=== PATIENT | female | born 1990 | race Caucasian/White ===

== ENCOUNTER 2018-06-21 18:00 | Inpatient (IN) | payer OTHER ==
[~2018-06-21] VITALS: Ht 160 cm; Wt 59.9 kg
[2018-06-21 18:35] VITALS: BP 116/72
[2018-06-21] MEDS ORDERED: D5 LR IV SOLUTION 1,000 ML IV ONE (18:39)
[2018-06-21] MEDS: D5 LR IV SOLUTION 1,000 ML IV SCH ×2 (18:50→22:29)
[2018-06-21 19:24] VITALS: BP 107/72
[2018-06-21 19:25] LABS: BASOPHILS % (AUTO) 0 % (0-10); EOSINOPHILS # (AUTO) 0.1 10^3/uL (0.0-0.3); EOSINOPHILS % (AUTO) 1 % (0-10); HEMATOCRIT 36 % (35-52); HEMOGLOBIN 12.5 G/DL (11.5-16.0); LYMPHOCYTES # (AUTO) 1.4 X 10^3 (1.0-4.0); LYMPHOCYTES % (AUTO) 19 % (12-44); MEAN CORPUSCULAR HGB CONC 35 G/DL (32-36); MEAN CORPUSCULAR VOLUME 93 FL (80-99); MEAN PLATELET VOLUME 9.7 FL (7.4-10.4); MONOCYTES # (AUTO) 0.6 X 10^3 (0.0-1.0); MONOCYTES % (AUTO) 9 % (0-12); NEUTROPHILS # (AUTO) 5.2 X 10^3 (1.8-7.8); NEUTROPHILS % (AUTO) 71 % (42-75); PLATELET COUNT 228 10^3/uL (130-400); RED BLOOD COUNT 3.85 10^6/uL (4.35-5.85); RED CELL DISTRIBUTION WIDTH 13.5 % (10.0-14.5); WHITE BLOOD COUNT 7.3 10^3/uL (4.3-11.0)
[2018-06-21] MEDS ORDERED: DINOPROSTONE 10 MG (CERVIDIL) INSERT ONE (19:25)
[2018-06-21 19:26] LABS: MEAN CORPUSCULAR HEMOGLOBIN 32 PG (25-34)
[2018-06-21] MEDS ORDERED: DINOPROSTONE 10 MG (CERVIDIL) INSERT PV ONE (19:30)
[2018-06-21] MEDS ORDERED: ASPI-999 PO (19:39)
[2018-06-21] MEDS ORDERED: PREN1TAB19 PO (19:39)
--- NOTE | 2018-06-21 20:29 | History & Physical ---
History and Physical Date Seen by Provider: Jun 21, 2018 Time Seen by Provider: 20:25 This patient is a 27-year-old 1 white female with an EDC of [id number] [phone]. She presents now at 38 weeks gestation for cervical ripening in preparation for labor induction secondary to gestational diabetes and to mild PIH. She is a type AI gestational diabetic with good control on her diet. She denies rupture membranes or bleeding. She does feel baby moving. She's had no other problems with this . Her GBS culture done after 35 weeks gestation was negative. Allergies are none Medications are vitamins and low-dose aspirin Medical social and surgical histories are per the antepartum record HEENT exam is normal Neck is supple no lymphadenopathy no thyromegaly Abdomen is gravid soft nontender nondistended Extreme show clubbing cyanosis. There is no Homans sign. Pelvic exam is deferred monitor shows a normal heart rate pattern with regular accels is no D cells and good variability. There are occasional contractions now that began after the Cervidil was placed Laboratory Tests 06/21/18 18:50 Assessment and plan 38 week intrauterine complicated by gestational diabetes. Patient is admitted now for Cervidil cervical ripening with plan for dose induction of labor in the morning. Anticipation is for vaginal delivery patient is aware that there are and maternal risks for delivery 38 week with gestational diabetes mellitus Allergies and Home Medications Allergies Coded Allergies: No Known Drug Allergies (Unverified , 06/21/18) Home Medications Aspirin 81 Mg Tab.chew, 81 MG PO DAILY, (Reported) Vit/Iron Fumarate/FA 1 Each Tablet, 1 EACH PO DAILY, (Reported) Patient Home Medication List Home Medication List Reviewed: Yes Clinical Quality Measures DVT/VTE Risk/Contraindication: Risk Factor Score Per Nursin RFS Level Per Nursing on Admit: 1=Low/No VTE PPX RL VARGAS MD Jun 21, 2018 20:28
[2018-06-21 20:31] VITALS: BP 110/71
[2018-06-21 23:45] VITALS: BP 109/76
[2018-06-22] VITALS (73 sets, daily range): BP systolic 94–137; BP diastolic 52–91
[2018-06-22] MEDS: D5 LR IV SOLUTION 1,000 ML IV SCH ×3 (05:02→18:15)
[2018-06-22] MEDS: CATHETER FLUSH 10 ML SYR IV SCH ×4 (05:54→22:00)
[2018-06-22] MEDS: OXYTOCIN/NORMAL SALINE 500 ML IV SCH (06:05)
[2018-06-22] MEDS ORDERED: LACTATED RINGERS 1,000 ML IV ONE (07:30)
[2018-06-22] MEDS ORDERED: SUFENTA 0.6MCG/ML BUPIVA 0.125 100 ML ONE (07:30)
--- NOTE | 2018-06-22 07:55 | Progress Note-Standard ---
Standard Progress Note Progress Notes/Assess & Plan Date Seen by a Provider: Jun 22, 2018 Time Seen by a Provider: 07:52 Progress/Assessment & Plan Patient is without complaint except for intensify and contractions. She denies rupture membranes or bleeding. She denies nausea vomiting Vital Signs Date Time Temp Pulse Resp B/P (MAP) Pulse Ox O2 Delivery O2 Flow Rate FiO2 06/22/18 07:00 66 18 100/63 (75) Room Air 06/22/18 06:45 77 18 108/71 (83) Room Air 06/22/18 06:30 73 18 106/74 (85) Room Air 06/22/18 06:19 96.3 74 18 113/73 (86) Room Air 06/22/18 05:04 96.8 76 18 112/66 (81) Room Air 06/21/18 23:45 97.2 74 18 109/76 (87) Room Air 06/21/18 20:31 85 18 110/71 (84) Room Air 06/21/18 19:24 97.0 83 18 107/72 (84) Room Air 06/21/18 18:35 96.9 83 18 116/72 (87) Room Air I & O 06/22/18 07:00 Intake Total 2300 ml Balance 2300 ml Vital signs are stable. Patient is afebrile. History of blood sugars have been checked and have been less than 120 The abdomen is gravid soft nontender non-distended. Extreme show clubbing cyanosis. There is no Homans sign. Pelvic exam shows a cervix is almost 2 cm dilated 80 percent effaced and 0 to - 1 station soft anterior with a vertex presentation and with intact membranes. Amniotomy is performed with release of clear fluid. monitor shows contractions now every 2-3 minutes. Patient has been started on Pitocin this morning. heart rate pattern is reassuring reactive normal Assessment and plan hospital day 2 undergone Pitocin induction of labor now at 38 weeks gestation secondary to gestational diabetes. Patient had mild PIH in clinic her blood pressures have been normal since admission. Epidural is pending RL VARGAS MD Jun 22, 2018 07:55
[2018-06-22] MEDS: EPIDURAL (SUFENTA 0.6MCG/ML BUPIVA 0.125%) 100 ML BAG EPI SCH ×2 (08:36→15:08)
[2018-06-22] MEDS ORDERED: LACTATED RINGERS 1,000 ML IV SCH (09:00)
[2018-06-22] MEDS ORDERED: NALOXONE 0.4 MG/ML 1 ML (NARCAN) VIAL IV PRN ×2 (09:00)
[2018-06-22] MEDS ORDERED: ONDANSETRON 4 MG/2 ML (SDV) Z0FRAN IV PRN (09:00)
[2018-06-22] MEDS ORDERED: diphenhydrAMINE 50 MG/ML INJ (BENADRYL) IV PRN (09:00)
[2018-06-22] MEDS ORDERED: METOCLOPRAMIDE INJ 10 MG/2 ML (REGLAN) IV PRN (09:00)
[2018-06-22] MEDS ORDERED: MINERAL OIL CONCENTRATE 99.9% 15 ML UDC ONE (17:18)
[2018-06-22] MEDS ORDERED: LIDOCAINE/EPI 2% 1:200,00 (XYLOCAINE) 10 ML VIAL ONE (17:18)
[2018-06-22] MEDS ORDERED: OXYTOCIN/NORMAL SALINE 500 ML IV SCH (20:59)
[2018-06-22] MEDS ORDERED: TETANUS,DIPTH,PERTUSS P/F (BOOSTRIX) 0.5 ML VIAL IM ONE (21:00)
[2018-06-22] MEDS ORDERED: oxyCODONE/APAP 5/325MG (PERCOCET 5) TABLET PO PRN (21:00)
[2018-06-22] MEDS ORDERED: ONDANSETRON 4 MG/2 ML (SDV) Z0FRAN IVP PRN (21:00)
[2018-06-22] MEDS ORDERED: BENZOCAINE/MENTHOL (DERMOPLAST) 56 ML CAN TP PRN (21:00)
[2018-06-22] MEDS ORDERED: MEASLES,MUMPS,RUBELLA 1 EA INJ SC ONE (21:00)
[2018-06-23 00:10] VITALS: BP 118/73
[2018-06-23] MEDS ORDERED: WITCH HAZEL(TUCKS) 40 EA JAR TOP PRN (00:15)
[2018-06-23] MEDS ORDERED: DIBUCAINE (NUPERCAINAL) 1% OINT 30 GM TOP PRN (00:15)
--- NOTE | 2018-06-23 00:43 | OPERATIVE REPORT ---
DATE OF SERVICE: 06/22/2018 DELIVERY NOTE The patient delivered by term spontaneous vaginal delivery a viable male with Apgars of 8 and 9 at 1 and 5 minutes respectively, weight of 7 pounds 2 ounces, time of 18:54 and a cord blood gas pH of 7.26. The infant was delivered over midline episiotomy was performed as the baby was and the perineum was beginning to tear and shred. The delivery was accomplished promptly after the episiotomy was performed. The infant was bulb suctioned on delivery of the head and again on completion of delivery. Infant had spontaneous cry, was quickly pink, moved all extremities, had excellent tone and reflexes and heart rate over 120. The baby was placed on mom's abdomen and umbilical cord was doubly clamped, father cut the cord. Cord bloods were obtained. The placenta delivered fairly promptly spontaneously Santa. It was normal with a 3-vessel cord. The placenta was sent to pathology for permanent section secondary to the patient's gestational diabetes. The cervix, vagina, rectum and perineum were examined and found intact, except for the midline episiotomy and a small periurethral abrasion that was hemostatic and did not require repair. The episiotomy was repaired with a single suture of 3-0 Vicryl in the usual manner without difficulty to good reapproximation, good hemostasis. The patient tolerated the delivery and the repair well and remained in the LDR for recovery. The baby remained with the mom. Job ID: [id number] DocumentID: [id number] Dictated Date: 06/22/2018 19:20:54 Nuclear Technologist Date: 06/23/2018 00:42:03 Dictated By: RL VARGAS MD MTDD
[2018-06-23] MEDS: KETOROLAC 30 MG/ML VIAL IV SCH ×2 (01:10→04:04)
[2018-06-23] MEDS: DOCUSATE SODIUM 100 MG (COLACE) CAP PO SCH ×2 (01:10→22:19)
[2018-06-23] MEDS: OXYTOCIN/NORMAL SALINE 500 ML IV SCH (01:11)
[2018-06-23 05:00] VITALS: BP 89/58
[2018-06-23] MEDS: CATHETER FLUSH 10 ML SYR IV SCH (06:30)
--- NOTE | 2018-06-23 07:40 | Progress Note-Standard ---
Standard Progress Note Progress Notes/Assess & Plan Date Seen by a Provider: Jun 23, 2018 Time Seen by a Provider: 07:39 Progress/Assessment & Plan Patient is without complaint except for intensify and contractions. She denies rupture membranes or bleeding. She denies nausea vomiting Vital Signs Date Time Temp Pulse Resp B/P (MAP) Pulse Ox O2 Delivery O2 Flow Rate FiO2 06/22/18 07:00 66 18 100/63 (75) Room Air 06/22/18 06:45 77 18 108/71 (83) Room Air 06/22/18 06:30 73 18 106/74 (85) Room Air 06/22/18 06:19 96.3 74 18 113/73 (86) Room Air 06/22/18 05:04 96.8 76 18 112/66 (81) Room Air 06/21/18 23:45 97.2 74 18 109/76 (87) Room Air 06/21/18 20:31 85 18 110/71 (84) Room Air 06/21/18 19:24 97.0 83 18 107/72 (84) Room Air 06/21/18 18:35 96.9 83 18 116/72 (87) Room Air I & O 06/22/18 07:00 Intake Total 2300 ml Balance 2300 ml Vital signs are stable. Patient is afebrile. History of blood sugars have been checked and have been less than 120 The abdomen is gravid soft nontender non-distended. Extreme show clubbing cyanosis. There is no Homans sign. Pelvic exam shows a cervix is almost 2 cm dilated 80 percent effaced and 0 to - 1 station soft anterior with a vertex presentation and with intact membranes. Amniotomy is performed with release of clear fluid. monitor shows contractions now every 2-3 minutes. Patient has been started on Pitocin this morning. heart rate pattern is reassuring reactive normal Assessment and plan hospital day 2 undergone Pitocin induction of labor now at 38 weeks gestation secondary to gestational diabetes. Patient had mild PIH in clinic her blood pressures have been normal since admission. Epidural is pending June 23, 2015 Patient is without complaint. She is ambulating, voiding, tolerating oral intake well has good pain control. Patient denies chest pain, denies shortness breath, denies nausea vomiting Vital Signs 06/23/18 05:00 Temp 96.3 Pulse 77 Resp 18 B/P (MAP) 89/58 (68) Pulse Ox 98 O2 Delivery Room Air Vital signs are stable. Patient is afebrile. Abdomen is benign. Extremities show no clubbing cyanosis. There is no Homans sign. Assessment and plan day number 1 status post term spontaneous vaginal delivery at 38-2/7 weeks' gestation. Patient is doing well will have routine convalescence care today with discharge home tomorrow RL VARGAS MD Jun 23, 2018 07:40
[2018-06-23] MEDS ORDERED: IBUP-1780 PO (07:42)
[2018-06-23] MEDS ORDERED: OXYC1TAB87 PO (07:42)
[2018-06-23] MEDS ORDERED: DOCU100C37 PO (07:42)
--- NOTE | 2018-06-23 07:43 | Discharge Instructions ---
Discharge Instructions Discharge Medications New, Converted or Re-Newed RX: RX on Chart Patient Instructions Patient Instructions: As directed Return to The Hospital For: As directed Activity & Diet Discharge Diet: No Restrictions Activity as Tolerated: No Orders-Post D/C & Referrals Follow Up Appt: Call to make follow up appt. for patient in 4 weeks. Activity Per routine post vaginal delivery instructions. Diet as tolerated Patient may shower or tub bathe as desired. RL VARGAS MD Jun 23, 2018 07:43
[2018-06-23] MEDS ORDERED: MEASLES,MUMPS,RUBELLA 1 EA INJ ONE (07:48)
[2018-06-23 08:00] VITALS: BP 103/71
[2018-06-23 12:00] VITALS: BP 105/68
--- NOTE | 2018-06-23 12:01 | Anesthesia-Regional Post-Op ---
Regional Patient Condition Mental Status: Alert, Oriented x3 Circulation: Same as Pre-Op Headache: Absent Sensation: Full Recovery Motor Block: Absent Post Op Complications Complications None Follow Up Care/Instructions Patient Instructions None needed. Anesthesia/Patient Condition Patient is doing well, no complaints, stable vital signs, no apparent adverse anesthesia problems. No complications reported per nursing. EVIE ENAMORADO CRNA Jun 23, 2018 12:01
[2018-06-23 17:00] VITALS: BP 98/60
[2018-06-23 21:10] VITALS: BP 118/76
[2018-06-23] MEDS: IBUPROFEN 800 MG (MOTRIN) TAB PO SCH (22:19)
[2018-06-24] MEDS: IBUPROFEN 800 MG (MOTRIN) TAB PO SCH ×2 (04:45→10:09)
[2018-06-24 05:11] VITALS: BP 106/64
--- NOTE | 2018-06-24 08:14 | Progress Note-Standard ---
Standard Progress Note Progress Notes/Assess & Plan Date Seen by a Provider: Jun 24, 2018 Time Seen by a Provider: 08:13 Progress/Assessment & Plan Patient is without complaint except for intensify and contractions. She denies rupture membranes or bleeding. She denies nausea vomiting Vital Signs Date Time Temp Pulse Resp B/P (MAP) Pulse Ox O2 Delivery O2 Flow Rate FiO2 06/22/18 07:00 66 18 100/63 (75) Room Air 06/22/18 06:45 77 18 108/71 (83) Room Air 06/22/18 06:30 73 18 106/74 (85) Room Air 06/22/18 06:19 96.3 74 18 113/73 (86) Room Air 06/22/18 05:04 96.8 76 18 112/66 (81) Room Air 06/21/18 23:45 97.2 74 18 109/76 (87) Room Air 06/21/18 20:31 85 18 110/71 (84) Room Air 06/21/18 19:24 97.0 83 18 107/72 (84) Room Air 06/21/18 18:35 96.9 83 18 116/72 (87) Room Air I & O 06/22/18 07:00 Intake Total 2300 ml Balance 2300 ml Vital signs are stable. Patient is afebrile. History of blood sugars have been checked and have been less than 120 The abdomen is gravid soft nontender non-distended. Extreme show clubbing cyanosis. There is no Homans sign. Pelvic exam shows a cervix is almost 2 cm dilated 80 percent effaced and 0 to - 1 station soft anterior with a vertex presentation and with intact membranes. Amniotomy is performed with release of clear fluid. monitor shows contractions now every 2-3 minutes. Patient has been started on Pitocin this morning. heart rate pattern is reassuring reactive normal Assessment and plan hospital day 2 undergone Pitocin induction of labor now at 38 weeks gestation secondary to gestational diabetes. Patient had mild PIH in clinic her blood pressures have been normal since admission. Epidural is pending June 23, 2015 Patient is without complaint. She is ambulating, voiding, tolerating oral intake well has good pain control. Patient denies chest pain, denies shortness breath, denies nausea vomiting Vital Signs 06/23/18 05:00 Temp 96.3 Pulse 77 Resp 18 B/P (MAP) 89/58 (68) Pulse Ox 98 O2 Delivery Room Air Vital signs are stable. Patient is afebrile. Abdomen is benign. Extremities show no clubbing cyanosis. There is no Homans sign. Assessment and plan day number 1 status post term spontaneous vaginal delivery at 38-2/7 weeks' gestation. Patient is doing well will have routine convalescence care today with discharge home tomorrow June 24, 2018. Patient is without complaint. She is ablating, voiding, tolerating oral intake well, patient feels ready for discharge home. Vital Signs 06/24/18 05:11 Temp 97.0 Pulse 76 Resp 18 B/P (MAP) 106/64 (78) Pulse Ox 99 O2 Delivery Room Air Vital signs are stable. Patient is afebrile. Fundus is firm below the umbilicus and nontender. Extreme show clubbing cyanosis. Homans sign. Assessment and plan day number 2 status post term spontaneous vaginal delivery at 38 weeks gestation, plan is for discharge home Final Diagnosis 38 week spontaneous vaginal delivery RL VARGAS MD Jun 24, 2018 08:14
--- NOTE | 2018-06-24 08:18 | Discharge Summary ---
Discharge Summary 38 week spontaneous vaginal delivery This patient is a 27-year-old 1 white female admitted at 38+ weeks gestation for labor induction secondary to type AI gestational diabetes. She was admitted in the evening of June 21, 2018 for Cervidil cervical ripening. Pitocin induction of labor was initiated in the a.m. of June 22, 2018. Patient labored adequately and that will have to term spontaneous vaginal delivery. That delivery was uncomplicated patient recovered uneventfully. On June 23, 2018 which was day number 1 patient is ablating, voiding, tolerating oral intake well and had routine convalescence care. Now on June 24, 2018 patient is day number 2 doing well is ambulating, voiding, tolerating oral intake well and requesting discharge home. Principal diagnoses this hospitalization is 38 week spontaneous vaginal delivery Secondary diagnoses are gestational diabetes 38 week Operation procedures include Cervidil cervical ripening, Pitocin induction of labor, amniotomy, epidural labor analgesia, currently spontaneous vaginal delivery Patient was given appropriate discharge instructions verbally and writing and a copy those are placed in the chart. Discharge medications are Percocet and Motrin and Colace. Patient is continue her vitamins. Clinical Quality Measures DVT/VTE Risk/Contraindication: Risk Factor Score Per Nursin RFS Level Per Nursing on Admit: 1=Low/No VTE PPX RL VARGAS MD Jun 24, 2018 08:18
[2018-06-24 08:25] VITALS: BP 129/85
[2018-06-24] MEDS: DOCUSATE SODIUM 100 MG (COLACE) CAP PO SCH (10:09)
== END 2018-06-24 13:45 | disposition home or self-care (01) | DRG 807 ==
LOC: LDRP 18:13
PROVIDERS: ADMIT Obstetrics & Gynecology; ATTEND Obstetrics & Gynecology
PROC: 3E033VJ Introduction of Other Hormone into Peripheral Vein, Percutaneous Approach (ICD-10-PCS; 2018-06-21)
PROC: 10E0XZZ Delivery of Products of Conception, External Approach (ICD-10-PCS; principal; 2018-06-22)
PROC: 0W8NXZZ Division of Female Perineum, External Approach (ICD-10-PCS; principal; 2018-06-22)
DX: O24.420 Gestational diabetes mellitus in childbirth, diet controlled (principal); Z37.0 Single live birth; Z3A.38 38 weeks gestation of pregnancy
CPT/HCPCS: 36415; 82947; 85025; 86850; 86900; 86901; 88307; 90707

== ENCOUNTER 2020-01-07 05:32 | Outpatient (RCR) | payer OTHER ==
[~2020-01-07] VITALS: Ht 160 cm; Wt 55.5 kg
[~2020-01-07 05:32] MED LIST: ASPI-999 PO; DOCU100C37 PO; IBUP-1780 PO; OXYC1TAB87 PO; PREN1TAB19 PO; bcp PO
== END 2020-01-07 09:49 | disposition home or self-care (01) ==
LOC: PREOP 05:32
PROVIDERS: ATTEND Obstetrics & Gynecology
DX: Z01.812 Encounter for preprocedural laboratory examination (principal); L02.818 Cutaneous abscess of other sites; D64.9 Anemia, unspecified; Z20.828 Contact with and (suspected) exposure to other viral communicable diseases
CPT/HCPCS: 87635

== ENCOUNTER 2020-01-09 10:46 | Day surgery (SDC) | payer OTHER ==
[2020-01-09] VITALS (10 sets, daily range): BP systolic 82–135; BP diastolic 53–88
[~2020-01-09] VITALS: Ht 160 cm; Wt 52.7 kg
[2020-01-09] MEDS ORDERED: ceFAZolin INJECTION 1,000 MG in WATER (STERILE) FOR INJECTION 10 ML IV ONE (11:00)
[2020-01-09] MEDS: LACTATED RINGERS 1,000 ML IV PRN ×2 (11:02→13:10)
[2020-01-09 11:27] LABS: BASOPHILS % (AUTO) 0 % (0-10); EOSINOPHILS # (AUTO) 0.1 10^3/uL (0.0-0.3); EOSINOPHILS % (AUTO) 2 % (0-10); HEMATOCRIT 42 % (35-52); HEMOGLOBIN 14.2 G/DL (11.5-16.0); LYMPHOCYTES # (AUTO) 1.8 X 10^3 (1.0-4.0); LYMPHOCYTES % (AUTO) 32 % (12-44); MEAN CORPUSCULAR HEMOGLOBIN 30 PG (25-34); MEAN CORPUSCULAR HGB CONC 34 G/DL (32-36); MEAN CORPUSCULAR VOLUME 88 FL (80-99); MEAN PLATELET VOLUME 9.2 FL (7.4-10.4); MONOCYTES # (AUTO) 0.5 X 10^3 (0.0-1.0); MONOCYTES % (AUTO) 9 % (0-12); NEUTROPHILS # (AUTO) 3.2 X 10^3 (1.8-7.8); NEUTROPHILS % (AUTO) 57 % (42-75); PLATELET COUNT 247 10^3/uL (130-400); RED CELL DISTRIBUTION WIDTH 13.4 % (10.0-14.5); WHITE BLOOD COUNT 5.7 10^3/uL (4.3-11.0)
[2020-01-09] MEDS ORDERED: LIDOCAINE PF 2% 5 ML (XYLOCAINE) VIAL ONE (11:36)
[2020-01-09] MEDS ORDERED: proPOfol 200 MG/20 ML (DIPRIVAN) VIAL IV ONE ×2 (11:36→12:56)
[2020-01-09] MEDS ORDERED: ONDANSETRON 4 MG/2 ML (SDV) Z0FRAN ONE (11:36)
[2020-01-09] MEDS ORDERED: MIDAZOLAM 2 MG/2 ML (VERSED) VIAL ONE (11:36)
[2020-01-09] MEDS ORDERED: SEVOFLURANE (ULTANE) 15 ML INHAL SOLN ONE (11:36)
[2020-01-09] MEDS ORDERED: fentaNYL INJECTION 100 MCG/2 ML AMP ONE ×2 (11:36→13:17)
[2020-01-09] MEDS ORDERED: DEXAMETHASONE 10 MG/ML (DECADRON) 1 ML VIAL ONE (11:36)
--- OUTSIDE RECORDS SUMMARY | 2020-01-09 12:14 | XMS REPORT | Continuity of Care Document ---
Author Organization Unknown Address Unknown Phone Unavailable Allergies Active Description Code Type Severity Reaction Onset Reported/Identified Relationship to Patient Clinical Status Yes No Known Drug Allergies [id number] Drug Allergy Unknown N/A 06/21/2018 Medications There is no data. Problems Date Dx Coded Attending Type Code Diagnosis Diagnosed By 06/24/2018 RL VARGAS MD, Ot O24.420 GESTATIONAL DIABETES MELLITUS IN CHILDBI 06/24/2018 RL VARGAS MD, Ot Z37.0 SINGLE LIVE 06/24/2018 RL VARGAS MD, Ot Z3A.38 38 WEEKS GESTATION OF Procedures Code Description Performed By Per formed On [id number] IN TRODUCTION OF OTH HORMONE INTO PERIPH 06/21/2018 [id number] DI VISION OF FEMALE PERINEUM, EXTERNAL AP 06/22/2018 09Y2NCI DE LIVERY OF PRODUCTS OF CONCEPTION, EXTE 06/22/2018 Results Test Result Range Complete blood count (CBC) with automate d white blood cell (WBC) differential - 06/21/18 18:50 Blood leukocytes automated count (number/volume) 7.3 10*3/uL 4.3-11.0 Blood erythrocytes automated count (number/volume) 3.85 10*6/uL 4.35-5.85 Venous blood hemoglobin measurement (mass/volume) 12.5 g/dL 11.5-16.0 Blood hematocrit (volume fraction) 36 % 35-52 Automated erythrocyte mean corpuscular volume 93 [ foz_us] 80-99 Automated erythrocyte mean corpuscular h emoglobin (mass per erythrocyte) 32 pg 25-34 Automated erythrocyte mean corpuscular h emoglobin concentration measurement (mass/volume) 35 g/dL 32-36 Automated erythrocyte distribution width ratio 13. 5 % 10.0- 14.5 Automated blood platelet count (count/volume) 228 10*3/uL 130-400 Automated blood platelet mean volume measurement 9.7 [foz_us] 7.4-10.4 Automated blood neutrophils/100 leukocytes 71 % 42-75 Automated blood lymphocytes/100 leukocytes 19 % 12-44 Blood monocytes/100 leukocytes 9 % 0-12 Automated blood eosinophils/100 leukocytes 1 % 0-10 Automated blood basophils/100 leukocytes 0 % 0-10 Blood neutrophils automated count (number/volume) 5.2 10*3 1.8-7.8 Blood lymphocytes automated count (number/volume) 1.4 10*3 1.0-4.0 Blood monocytes automated count (number/volume) 0. 6 10*3 0.0-1.0 Automated eosinophil count 0.1 10*3/uL 0 .0-0.3 Automated blood basophil count (count/volume) 0.0 10*3/uL 0.0-0.1 Serum or plasma glucose measurement (mas s/volume) - 06/21/18 18:50 Serum or plasma glucose measurement (mass/volume) 76 mg/dL 70-105 Blood type T Indirect antibody screen pa saturnino - 06/21/18 18:50 ABO+Rh group OP NRG Transfusion band number [id number] NRG Blood group antibody screen NEGATIVE NR G Encounters ACCT No. Visit Date/Time Discharge Status Pt. Type Provider Facility Loc./Unit Complaint [id number] 01/07/2020 05:32:00 020 09:49:00 DIS Outpatient RL VARGAS MD [facility] PREOP PERICLITORAL AB SCESS [id number] 06/21/2018 18:13:00 018 13:45:00 DIS Outpatient RL VARGAS MD [facility] LDRP INDUCTION [id number] 01/09/2020 13:00:00 P EN Preadmit RL VARGAS MD [facility] SDC PERICLITORAL ABSCESS
--- NOTE | 2020-01-09 12:39 | Progress Note-Pre Operative ---
Pre-Operative Progress Note H&P Reviewed The H&P was reviewed, patient examined and no changes noted. Date Seen by Provider: Jan 09, 2020 Time Seen by Provider: 12:39 Date H&P Reviewed: Jan 09, 2020 Time H&P Reviewed: 12:39 Pre-Operative Diagnosis: periclitoral abscess - nonhealing RL VARGAS MD Jan 09, 2020 12:39
--- NOTE | 2020-01-09 12:40 | Progress Note-Post Operative ---
Post-Operative Progess Note Surgeon (s)/Heavy Line Technician (s) Surgeon RL VARGAS MD Heavy Line Technician: none Pre-Operative Diagnosis periclitoral abscess - nonhealing Post-Operative Diagnosis same Procedure & Operative Findings Date of Procedure 01/09/20 Procedure Performed/Findings Partial vulvectomy Anesthesia Type geta Estimated Blood Loss Estimated blood loss (mL): min Specimens/Packing Specimens Removed periclitoral nodular abscessed mass RL VARGAS MD Jan 09, 2020 12:40
[2020-01-09] MEDS ORDERED: OXYC1TAB87 PO (12:41)
[2020-01-09] MEDS ORDERED: IBUP-1780 PO ×2 (12:41→14:27)
--- NOTE | 2020-01-09 12:42 | Discharge Inst-Surgical ---
Discharge Inst-Surgical Depart Medication/Instructions New, Converted or Re-Newed RX: RX on Chart Consults/Follow Up Patient Instructions: as directed Orders & Referrals Follow Up Appt: Call to make follow up appt. for patient in 1 week. Activity: Rest for 24 hours, than as tolerated. Wound Care: May remove Band-Aid tomorrow. Replace as desired. Keep incisions clean and dry. Wash daily with soap and water. Please call in RX to patient pharmacy. Diet: As tolerated-Clear Liquids only if nauseated. shower or tub bathe as desired. No driving for 24 hours, no alcoholic beverages for 24 hours, and nothing per vagina (no tampons, douching, or intercoarse) for 2 weeks. Patient to return to the clinic as soon as possible for: Temperature greater than 101F, Severe Pain, Foul discharge from incision or vagina, Excessive Bleeding (more than a period). Activity Activity as Tolerated: Yes Diet Discharge Diet: No Restrictions RL VARGAS MD Jan 09, 2020 12:42
[2020-01-09] MEDS ORDERED: ONDANSETRON 4 MG/2 ML (SDV) Z0FRAN IVP PRN (13:45)
[2020-01-09] MEDS ORDERED: morphine INJ 10 MG/ML 1ML (SYR OR VIAL) IVP ONE (13:45)
--- NOTE | 2020-01-09 13:50 | Anesthesia-General Post-Op ---
General Patient Condition Mental Status/LOC: Same as Preop Cardiovascular: Satisfactory Nausea/Vomiting: Absent Respiratory: Satisfactory Pain: Controlled Complications: Absent Post Op Complications Complications None Follow Up Care/Instructions Patient Instructions None needed. Anesthesia/Patient Condition Patient Condition Patient is doing well, no complaints, stable vital signs, no apparent adverse anesthesia problems. ALEX JUNE DO Jan 09, 2020 13:50
[2020-01-09] MEDS ORDERED: oxyCODONE/APAP 5/325MG (PERCOCET 5) TABLET ONE (14:20)
[2020-01-09] MEDS ORDERED: oxyCODONE/APAP 5/325MG (PERCOCET 5) TABLET PO ONE (14:30)
--- NOTE | 2020-01-10 00:53 | OPERATIVE REPORT ---
DATE OF SERVICE: 01/09/2020 PREOPERATIVE DIAGNOSIS: Periclitoral abscess/nonhealing nodular lesion. POSTOPERATIVE DIAGNOSIS: Periclitoral abscess/nonhealing nodular lesion with pathology pending. OPERATIVE PROCEDURE: Excision of periclitoral abscess/nodule. OPERATIVE DESCRIPTION: With the patient in the supine position under satisfactory general anesthesia, she was repositioned in frogleg to expose the mons and the periclitoral area. On exam, there was an exophytic lesion of approximately 5 mm in the left superior aspect of the clitoral prepuce. Subcutaneously, there was a nodular lesion of approximately 1 cm x 5 mm. There was purulent drainage from the exophytic lesion. With the patient prepped and draped for vaginal surgery, an elliptical incision was made around the exophytic lesion and then dissection was carried subcuticularly to the nodular aspect of this lesion, which was dissected out completely, taking care to avoid the clitoris in the adjacent structures. Dissecting the lesion free, once it was freed, there was an obvious very dark matter/foreign body contained in the dissected tissue. One end of the dark nodule actually protruded from the tissue and was discovered to be a cluster of hair that entire complex was sent to pathology for permanent section. With the lesion removed, several subcuticular sutures of 3-0 Vicryl Rapide were placed to reapproximate the subcuticular, interrupted sutures of the same suture were used to close the defect itself. Blood loss was minimal. The patient tolerated the procedure well and was uneventfully awakened from her general anesthesia and transferred to the recovery room in stable condition with plans for discharge home PAR. Job ID: [id number] DocumentID: [id number] Dictated Date: 01/09/2020 13:54:59 Well Drill Operator Date: 01/10/2020 00:53:05 Dictated By: RL VARGAS MD [facility]
== END 2020-01-09 15:05 | disposition home or self-care (01) ==
LOC: SDC 10:46
PROVIDERS: ATTEND Obstetrics & Gynecology
DX: N76.4 Abscess of vulva (principal)
CPT/HCPCS: 36415; 84703; 85025; 87081; 88304

== ENCOUNTER 2021-06-15 06:15 | Inpatient (IN) | payer OTHER ==
[~2021-06-15] VITALS: Ht 160 cm; Wt 63.3 kg
[2021-06-15] VITALS (45 sets, daily range): BP systolic 95–140; BP diastolic 52–92
[2021-06-15 06:55] LABS: BASOPHILS % (AUTO) 0 % (0-10); EOSINOPHILS # (AUTO) 0.1 10^3/uL (0.0-0.3); EOSINOPHILS % (AUTO) 1 % (0-10); HEMATOCRIT 39 % (35-52); HEMOGLOBIN 13.5 g/dL (11.5-16.0); LYMPHOCYTES % (AUTO) 23 % (12-44); MEAN CORPUSCULAR HEMOGLOBIN 32 pg (25-34); MEAN CORPUSCULAR HGB CONC 35 g/dL (32-36); MEAN CORPUSCULAR VOLUME 92 fL (80-99); MEAN PLATELET VOLUME 10.1 fL (9.0-12.2); MONOCYTES # (AUTO) 0.6 10^3/uL (0.0-1.0); MONOCYTES % (AUTO) 7 % (0-12); NEUTROPHILS # (AUTO) 5.9 10^3/uL (1.8-7.8); NEUTROPHILS % (AUTO) 69 % (42-75); PLATELET COUNT 198 10^3/uL (130-400); WHITE BLOOD COUNT 8.7 10^3/uL (4.3-11.0)
[2021-06-15] MEDS ORDERED: LIDOCAINE/EPI 2% 1:200,00 (XYLOCAINE) 20 ML VIAL INJ PRN (07:00)
[2021-06-15] MEDS ORDERED: D5 LR IV SOLUTION 1,000 ML IV SCH (07:00)
[2021-06-15] MEDS ORDERED: OXYTOCIN PRE-MIX DRIP 500 ML IV SCH ×2 (07:00→14:30)
[2021-06-15] MEDS ORDERED: fentaNYL 2 mcg/ml BUPIVA 0.125 100 ML ONE (07:18)
--- NOTE | 2021-06-15 07:22 | History & Physical-OB ---
OB - Chief Complaint & HPI Date/Time Date of Admission: Date of Admission: Jun 15, 2021 at 06:15 Date seen by a Provider: Jun 15, 2021 Time Seen by a Provider: 07:10 Chief Complaint/History OB-Reason for Admission/Chief: Induction of Labor Hx : 2 Hx Para: 1 Expected Date of Delivery: Jun 28, 2021 Gestational Age in Weeks: 38 Gestational Age in Days: 1 Admission Nurse Assessment Rev: Yes Allergies and Home Medications Allergies Coded Allergies: No Known Drug Allergies (Unverified , 01/09/20) Patient Home Medication List Home Medication List Reviewed: Yes Vit/Iron Fumarate/FA ( Vitamins Tablet) 1 Each Tablet, 1 EACH PO DAILY, (Reported) Entered as Reported by: BETTYE LOUIS on 06/21/18 193 Last Action: Reviewed Discontinued Medications Ibuprofen (Ibuprofen) 800 Mg Tablet, 800 MG PO Q6H PRN for PAIN Discontinued Reason: No Longer Taking Prescribed by: CASEY VALENZUELA on 01/09/20 1427 Last Action: Discontinued Oxycodone HCl/Acetaminophen (Percocet 5-325 mg Tablet) 1 Each Tablet, 1 TAB PO Q4H Discontinued Reason: No Longer Taking Prescribed by: RL SIMMONS on 01/09/20 1241 Last Action: Discontinued [bcp] , 1 TAB PO DAILY, (Reported) Discontinued Reason: No Longer Taking Entered as Reported by: BRIDGET VALERO on 01/03/20 1124 Last Action: Discontinued OB - History Hx of Present Care: Yes Ultrasounds: Normal mid trimester US Obstetrical Complications: Gestational Diabetes Medical Complications: None Patient Past Medical History n/a Immunizations Date of Influenza Vaccine: Apr 11, 2018 OB - Admission Exam Physical Exam Vitals: Vital Signs 06/15/21 06:58 Temp 36.7 Pulse 95 Resp 18 B/P (MAP) 122/80 (94) Pulse Ox 100 O2 Delivery Room Air HEENT: NCAT Heart: Rhythm Normal Lungs: Clear Abdomen: Gravid Extremities: Normal Reflexes: Normal Cervical Dilatation: 3cm Effacement: 75% Station: -1 Membranes: Intact Heart Rate: 150's Accelerations: Accelerations Present Decelerations: No Decelerations Short Term Variability: Present Mcc Variability: Average (6-25) Contractions on Admission: 6-10 Minutes Apart Intensity: Mild Labs Laboratory Tests Test 06/15/21 06:40 Range/Units White Blood Count 8.7 4.3-11.0 10^3/uL Red Blood Count 4.18 3.80-5.11 10^6/uL Hemoglobin 13.5 11.5-16.0 g/dL Hematocrit 39 35-52 % Mean Corpuscular Volume 92 80-99 fL Mean Corpuscular Hemoglobin 32 25-34 pg Mean Corpuscular Hemoglobin Concent 35 32-36 g/dL Red Cell Distribution Width 12.6 10.0-14.5 % Platelet Count 198 130-400 10^3/uL Mean Platelet Volume 10.1 9.0-12.2 fL Immature Granulocyte % (Auto) 1 % Neutrophils (%) (Auto) 69 42-75 % Lymphocytes (%) (Auto) 23 12-44 % Monocytes (%) (Auto) 7 0-12 % Eosinophils (%) (Auto) 1 0-10 % Basophils (%) (Auto) 0 0-10 % Neutrophils # (Auto) 5.9 1.8-7.8 10^3/uL Lymphocytes # (Auto) 2.0 1.0-4.0 10^3/uL Monocytes # (Auto) 0.6 0.0-1.0 10^3/uL Eosinophils # (Auto) 0.1 0.0-0.3 10^3/uL Basophils # (Auto) 0.0 0.0-0.1 10^3/uL Immature Granulocyte # (Auto) 0.1 0.0-0.1 10^3/uL OB - Assessment/Plan/Diagnosis Assessment Assessment: induction of labor Admission Dx 30 yo @ 38 weeks GDM GBS neg Admission Status: Inpatient Order (span 2 midnights) Reason for Inpatient Admission: IOL at 38 weeks Plan Induction Method: YENI SEO DO Jun 15, 2021 07:22
[2021-06-15] MEDS ORDERED: EPIDURAL (fentaNYL 2 MCG/ML BUPIVA 0.125%)100 ML BAG EPI SCH (08:00)
[2021-06-15] MEDS ORDERED: METOCLOPRAMIDE INJ 10 MG/2 ML (REGLAN) IV PRN (08:00)
[2021-06-15] MEDS ORDERED: ONDANSETRON 4 MG/2 ML (SDV) Z0FRAN IV PRN (08:00)
[2021-06-15] MEDS ORDERED: diphenhydrAMINE 50 MG/ML INJ (BENADRYL) IV PRN (08:00)
[2021-06-15] MEDS ORDERED: NALOXONE 0.4 MG/ML 1 ML (NARCAN) VIAL IV PRN ×3 (08:00→14:30)
[2021-06-15] MEDS ORDERED: LACTATED RINGERS 1,000 ML IV SCH (08:00)
[2021-06-15] MEDS ORDERED: CATHETER FLUSH 10 ML SYR IV SCH ×2 (14:00→22:00)
[2021-06-15] MEDS ORDERED: TETANUS,DIPTH,PERTUSS P/F (BOOSTRIX) 0.5 ML VIAL IM ONE (14:30)
[2021-06-15] MEDS ORDERED: WITCH HAZEL(TUCKS) 40 EA JAR TOP PRN (14:30)
[2021-06-15] MEDS ORDERED: DIBUCAINE 1% OINTMENT 30 GM TUBE TOP PRN (14:30)
[2021-06-15] MEDS ORDERED: MEASLES,MUMPS,RUBELLA 1 EA INJ SQ ONE (14:30)
[2021-06-15] MEDS ORDERED: HYDROcodone/APAP 5 MG/325 MG (LORTAB) TAB PO PRN (14:30)
--- NOTE | 2021-06-15 15:29 | OB Labor & Delivery Record ---
L&D History Date of Service Date of Service: Jun 15, 2021 History Expected Date of Delivery: Jun 28, 2021 Gestational Age in Weeks: 38 Hx : 2 Hx Para: 1 Complications Events: Gestational Diabetes, Routine care Operative Indications (Cesarea: N/A-Vaginal Delivery Intrapartal Events: None L&D Stage1 Stage One Onset of Labor - Date: Jun 15, 2021 Monitors and Tracing Monitor Mode: External Heart Rate: 145 Station: 0 Computer Equipment Repairer Variability: Average (6-10) Short Term Variability: Present Presentation: Vertex Vital Signs VS - Last 72 Hours, by Label 06/15/21 06/15/21 06/15/21 06/15/21 06:58 07:31 07:34 07:37 Temp 36.7 37.0 Pulse 95 90 83 88 Resp 18 18 18 18 B/P (MAP) 122/80 (94) 121/92 (102) 113/72 (86) 120/79 (93) Pulse Ox 100 100 100 O2 Delivery Room Air Room Air Room Air Room Air 06/15/21 06/15/21 06/15/21 06/15/21 07:39 07:42 07:45 07:48 Pulse 84 94 95 91 Resp 18 18 18 18 B/P (MAP) 111/78 (89) 122/86 (98) 115/79 (91) 115/76 (89) Pulse Ox 100 100 O2 Delivery Room Air Room Air Room Air Room Air 06/15/21 06/15/21 06/15/21 06/15/21 07:51 07:54 07:57 08:00 Pulse 85 89 83 107 Resp 18 18 18 18 B/P (MAP) 113/68 (83) 109/68 (82) 112/68 (83) 110/67 (81) Pulse Ox 100 99 100 O2 Delivery Room Air Room Air Room Air Room Air 06/15/21 06/15/21 06/15/21 06/15/21 08:17 08:32 08:47 09:02 Pulse 76 68 69 59 Resp 18 18 18 18 B/P (MAP) 97/52 (67) 96/58 (71) 97/60 (72) 99/65 (76) Pulse Ox 100 100 100 100 O2 Delivery Room Air Room Air Room Air Room Air 06/15/21 06/15/21 06/15/2106/15/21 09:05 09:18 09:32 09:48 Temp 35.8 Pulse 76 70 74 Resp 18 18 18 B/P (MAP) 95/61 (72) 100/66 (77) 107/70 (82) Pulse Ox 100 100 100 O2 Delivery Room Air Room Air Room Air 06/15/21 06/15/21 06/15/21 06/15/21 10:04 10:32 10:48 11:03 Pulse 81 61 65 65 Resp 18 18 18 18 B/P (MAP) 108/65 (79) 99/62 (74) 96/59 (71) 98/64 (75) Pulse Ox 100 100 100 100 O2 Delivery Room Air Room Air Room Air Room Air 06/15/21 06/15/21 06/15/21 11:17 11:32 11:48 Pulse 67 66 60 Resp 18 18 18 B/P (MAP) 101/62 (75) 101/62 (75) 103/65 (78) Pulse Ox 100 100 100 O2 Delivery Room Air Room Air Room Air Rupture of Membranes Amniotic Membrane Rupture Time: 708 Amniotic Membrane Fluid Desc.: Clear Vaginal Bleeding Description: Normal Show Induction/Anesthesia Epidural Cath Placement - Time: 07 Progress/Notes Patient admitted for IOL for GDM. She had AROM performed, followed by Pitocin augmentation and epidural placement. She progressed to complete and + 2 station. L&D Stage2 Stage Two Stage II Date: Jun 15, 2021 Monitors and Tracing Monitor Mode: External Heart Rate: 145 Monitor Accelerations: Uniform Monitor Decelerations: Variable Nursing Home Variability: Average (6-10) Short Term Variability: Present Position: Right Occiput Anterior Presentation: Vertex Cord Descript/Complications Cord Vessel Description: 3 Vessels Delivery Type Delivery Method: Spontaneous Vaginal Anterior Shoulder: Right Episiotomy/Perineal Laceration Laceraction(s)/Extensions: Yes Episiotomy Description: Perineal Extension/lac, 1st degree Degree (describe repair) 1st degree perineal laceration repaired using 3-0 rapide in usual fashion. Condition of Delivery 1 minute Comment: 9 5 minute Comment: 9 Notes Live male infant weight 7lbs 10 oz. Condition of Condition of Infant: Living Exam: No Observed Abnormalities Resuscitation Resuscitation: N/A - Spontaneous Resp L&D Stage3 Stage Three Stage III Date: Jun 15, 2021 Pictocin Pitocin Administration mu/min: 8 Pitocin ml/hr: 8 Pitocin Administration Comment: Pitocin 30 wide open after delivery of placenta Placenta Delivery Placenta Delivery: Spontaneous Delivery Summary Summary Estimated blood loss (mL): 350. Attending at delivery: Yeni Aguilera DO Condition of Delivery Examined: Cervix Examined, Uterus Explored Post Hemorrhage: No Condition of Mother stable Condition of (s) stable YENI AGUILERA DO Jun 15, 2021 15:29
[2021-06-15] MEDS: BENZOCAINE/MENTHOL (DERMOPLAST) 56 ML CAN TP PRN (16:54)
[2021-06-16 04:45] VITALS: BP 126/74
[2021-06-16 06:22] LABS: BASOPHILS % (AUTO) 0 % (0-10); EOSINOPHILS # (AUTO) 0.1 10^3/uL (0.0-0.3); EOSINOPHILS % (AUTO) 1 % (0-10); HEMATOCRIT 33 % (35-52); HEMOGLOBIN 11.3 g/dL (11.5-16.0); LYMPHOCYTES # (AUTO) 2.5 10^3/uL (1.0-4.0); LYMPHOCYTES % (AUTO) 22 % (12-44); MEAN CORPUSCULAR HEMOGLOBIN 33 pg (25-34); MEAN CORPUSCULAR HGB CONC 35 g/dL (32-36); MEAN CORPUSCULAR VOLUME 94 fL (80-99); MONOCYTES # (AUTO) 0.8 10^3/uL (0.0-1.0); MONOCYTES % (AUTO) 7 % (0-12); NEUTROPHILS # (AUTO) 8.1 10^3/uL (1.8-7.8); NEUTROPHILS % (AUTO) 70 % (42-75); PLATELET COUNT 176 10^3/uL (130-400); WHITE BLOOD COUNT 11.5 10^3/uL (4.3-11.0)
[2021-06-16] MEDS ORDERED: PRENATAL VITAMIN 1 EA TAB PO SCH (07:00)
--- NOTE | 2021-06-16 07:47 | Discharge Summary ---
Discharge Summary Hospital Course Problems Reviewed?: Yes Problems/Diagnosis: (1) 38 to 41 weeks gestation of Status: Resolved (2) Gestational diabetes mellitus (GDM) affecting Status: Resolved Hospital Course Date of Admission: Jun 15, 2021 at 06:15 Admission Diagnosis : Family Physician/Provider: Clark Carvajal MD Date of Discharge: 06/16/21 Discharge Diagnosis: [ ] Hospital Course: [ ] Labs and Pending Lab Test: Laboratory Tests 06/16/21 04:47: Glucometer 82 06/16/21 05:41: White Blood Count 11.5H, Red Blood Count 3.48L, Hemoglobin 11.3L, Hematocrit 33L , Mean Corpuscular Volume 94, Mean Corpuscular Hemoglobin 33, Mean Corpuscular Hemoglobin Concent 35, Red Cell Distribution Width 12.6, Platelet Count 176, Mean Platelet Volume 10.0, Immature Granulocyte % (Auto) 0, Neutrophils (%) (Auto) 70, Lymphocytes (%) (Auto) 22, Monocytes (%) (Auto) 7, Eosinophils (%) (Auto) 1, Basophils (%) (Auto) 0, Neutrophils # (Auto) 8.1H, Lymphocytes # (Auto) 2.5, Monocytes # (Auto) 0.8, Eosinophils # (Auto) 0.1, Basophils # (Auto) 0.0, Immature Granulocyte # (Auto) 0.0 Home Meds Active Reported Vitamins Tablet ( Vit/Iron Fumarate/FA) 1 Each Tablet 1 Each PO DAILY Patient Discharge Instructions Robina is a 30 yo F who had IOL at 38 weeks due to gestational diabetes mellitus. Had a vaginal delivery without any complications on 06/15/2021. Robina reports that she has had some uterine cramping that she feels is worse than her last but says the pain is manageable with the ibuprofen that she has been taking. She has been breast feeding without any complications. Patient is wanting to be discharged today. Robina can return home today. She should continue to take 600 mg ibuprofen as needed for pain. Activity: Activity as Tolerated NO SMOKING: NO SMOKING Nothing Inside Vagina: No Douching, No [place], No Tampons Discharge Diet: No Restrictions Symptoms to Report to : Fever Over 101 Degrees F, Vaginal Discharge Foul, Dizziness/Fainting Bathing Instructions: Shower Discharge Physical Examination Allergies: Coded Allergies: No Known Drug Allergies (Unverified , 01/09/20) Vitals & I&Os Vital Signs Date Time Temp Pulse Resp B/P (MAP) Pulse Ox O2 Delivery O2 Flow Rate FiO2 06/16/21 04:45 36.2 82 18 126/74 (91) 99 Room Air General Appearance: No Apparent Distress HEENT: PERRL/EOMI Respiratory: Chest Non Tender, Lungs Clear, Normal Breath Sounds Cardiovascular: Regular Rate, Rhythm, No Edema, No Murmur Gastrointestinal: Normal Bowel Sounds Extremity: Normal Inspection, Normal Range of Motion Skin: Normal Color, Warm/Dry Neurologic/Psychiatric: Alert, Oriented x3 Discharge Summary Date of Admission Jun 15, 2021 at 06:15 Date of Discharge Jun 16, 2021 Admission Diagnosis Admitted for induction due to gestational diabetes mellitus. Vaginal delivery performed without complications. Consults/Procedures Procedures Vaginal delivery MILE REINOSO Jun 16, 2021 07:35
--- NOTE | 2021-06-16 08:33 | Anesthesia-Regional Post-Op ---
Regional Patient Condition Mental Status: Alert, Oriented x3 Circulation: Same as Pre-Op Headache: Absent Sensation: Full Recovery Motor Block: Absent Post Op Complications Complications None Follow Up Care/Instructions Patient Instructions None needed. Anesthesia/Patient Condition Patient is doing well, no complaints, stable vital signs, no apparent adverse anesthesia problems. No complications reported per nursing. D/C home per [facility] [place] Criteria: Yes NAOMI EDUARDO CRNA Jun 16, 2021 08:33
--- NOTE | 2021-06-16 08:44 | Discharge Inst-Women's Service ---
Discharge Inst-Women's Serv Depart Medication/Instructions New, Converted or Re-Newed RX: Transmitted to Pharmacy Final Diagnosis PPD 1 NVD Problems Reviewed?: Yes Consults/Follow Up Additional Follow Up: Yes Orders/Referrals Dr. Aguilera/ Gus in 6 weeks Activity Activity: Activity as Tolerated Driving Instructions: No Driving for 1 Week NO SMOKING: NO SMOKING Nothing Inside Vagina: No Douching, No [place], No Tampons Diet Discharge Diet: No Restrictions Symptoms to Report to : Bleeding Excessive, Pain Increased, Fever Over 101 Degrees F, Vaginal Bleeding Increase, Questions/Concerns For Any Problems or Questions: Contact Your Physician YENI AGUILERA DO Jun 16, 2021 8:44 am
--- NOTE | 2021-06-16 08:44 | Postpartum Progress Note ---
Note Note Day # 1 Subjective: Patient is without complaints. Ambulating, voiding. Tolerating a regular diet without nausea or vomiting. Normal lochia. Pain is well controlled with oral pain medications. Objective: Physical Exam: General - Alert and oriented, no apparent distress Abdomen - Soft, appropriately tender to palpation, non-distended, fundus firm at umbilicus Extremities - no edema, negative Zari's bilaterally Assessment: PPD 1 NVD Acute blood loss anemia Plan: Routine care. Encourage breast feeding. Encourage ambulation. Ferrous sulfate supplementation. Plan for discharge today Vitals - Labs Vital Signs - I&O Vital Signs Date Time Temp Pulse Resp B/P (MAP) Pulse Ox O2 Delivery O2 Flow Rate FiO2 06/16/21 04:45 36.2 82 18 126/74 (91) 99 Room Air 06/15/21 23:08 37.0 71 18 115/80 (92) 100 Room Air 06/15/21 20:00 36.7 76 18 119/74 (89) 100 Room Air 06/15/21 16:52 81 18 114/76 (89) Room Air 06/15/21 16:22 93 18 120/70 (87) Room Air 06/15/21 15:52 77 18 110/72 (85) Room Air 06/15/21 15:22 83 18 110/72 (85) Room Air 06/15/21 15:16 74 18 108/70 (83) Room Air 06/15/21 15:01 71 18 108/68 (81) Room Air 06/15/21 14:46 70 18 108/67 (81) Room Air 06/15/21 14:31 36.4 78 18 110/60 (77) Room Air 06/15/21 14:20 36.8 06/15/21 14:16 74 18 114/57 (76) Room Air 06/15/21 14:11 36.5 69 18 108/55 (72) Room Air 06/15/21 14:01 86 18 116/69 (85) Room Air 06/15/21 13:47 89 18 116/80 (92) Room Air 06/15/21 13:33 87 18 102/59 (73) 100 Room Air 06/15/21 13:08 36.1 06/15/21 13:03 73 18 110/71 (84) 97 Room Air 06/15/21 12:47 73 18 102/57 (72) 99 Room Air 06/15/21 12:32 73 18 140/63 (88) 100 Room Air 06/15/21 12:17 71 18 103/63 (76) 100 Room Air 06/15/21 12:09 35.6 06/15/21 11:48 60 18 103/65 (78) 100 Room Air 06/15/21 11:32 66 18 101/62 (75) 100 Room Air 06/15/21 11:17 67 18 101/62 (75) 100 Room Air 06/15/21 11:03 65 18 98/64 (75) 100 Room Air 06/15/21 10:48 65 18 96/59 (71) 100 Room Air 06/15/21 10:32 61 18 99/62 (74) 100 Room Air 06/15/21 10:04 81 18 108/65 (79) 100 Room Air 06/15/21 09:48 74 18 107/70 (82) 100 Room Air 06/15/21 09:32 70 18 100/66 (77) 100 Room Air 06/15/21 09:18 76 18 95/61 (72) 100 Room Air 06/15/21 09:05 35.8 06/15/21 09:02 59 18 99/65 (76) 100 Room Air 06/15/21 08:47 69 18 97/60 (72) 100 Room Air I & O 06/16/21 07:00 Intake Total 1000 ml Balance 1000 ml Labs Laboratory Tests 06/16/21 04:47: Glucometer 82 06/16/21 05:41: White Blood Count 11.5H, Red Blood Count 3.48L, Hemoglobin 11.3L, Hematocrit 33L , Mean Corpuscular Volume 94, Mean Corpuscular Hemoglobin 33, Mean Corpuscular Hemoglobin Concent 35, Red Cell Distribution Width 12.6, Platelet Count 176, Mean Platelet Volume 10.0, Immature Granulocyte % (Auto) 0, Neutrophils (%) (Auto) 70, Lymphocytes (%) (Auto) 22, Monocytes (%) (Auto) 7, Eosinophils (%) (Auto) 1, Basophils (%) (Auto) 0, Neutrophils # (Auto) 8.1H, Lymphocytes # (Auto) 2.5, Monocytes # (Auto) 0.8, Eosinophils # (Auto) 0.1, Basophils # (Auto) 0.0, Immature Granulocyte # (Auto) 0.0 YENI AGUILERA DO Jun 16, 2021 8:44 am
[2021-06-16] MEDS ORDERED: DOCU100C37 PO (08:46)
[2021-06-16] MEDS ORDERED: ACHD5005 PO (08:46)
[2021-06-16] MEDS ORDERED: DIBU30OI TOP (08:46)
[2021-06-16] MEDS ORDERED: BENZ78AE5 TP (08:46)
[2021-06-16] MEDS ORDERED: IBUP-844 PO (08:46)
[2021-06-16] MEDS ORDERED: FERROUS SULF 325 MG (IRON) TAB PO SCH (09:00)
[2021-06-16] MEDS: BENZOCAINE/MENTHOL (DERMOPLAST) 56 ML CAN TP PRN (10:18)
[2021-06-16 10:19] VITALS: BP 117/72
[2021-06-16 14:05] VITALS: BP 107/56
[2021-06-16] MEDS: IBUPROFEN 600 MG (MOTRIN) TAB PO SCH ×3 (18:27→18:29)
[2021-06-16] MEDS: DOCUSATE SODIUM 100 MG (COLACE) CAP PO SCH ×2 (18:28→18:29)
== END 2021-06-16 16:20 | disposition home or self-care (01) | DRG 806 ==
LOC: LDRP 06:15
PROVIDERS: ADMIT Obstetrics & Gynecology; ATTEND Obstetrics & Gynecology
PROC: 10E0XZZ Delivery of Products of Conception, External Approach (ICD-10-PCS; principal; 2021-06-15)
PROC: 0W8NXZZ Division of Female Perineum, External Approach (ICD-10-PCS; 2021-06-15)
PROC: 0HQ9XZZ Repair Perineum Skin, External Approach (ICD-10-PCS; 2021-06-15)
PROC: 10907ZC Drainage of Amniotic Fluid, Therapeutic from Products of Conception, Via Natural or Artificial Opening (ICD-10-PCS; 2021-06-15)
DX: O24.429 Gestational diabetes mellitus in childbirth, unspecified control (principal); D62 Acute posthemorrhagic anemia; Z37.0 Single live birth; O70.0 First degree perineal laceration during delivery; O90.81 Anemia of the puerperium; Z3A.38 38 weeks gestation of pregnancy
CPT/HCPCS: 36415; 82947; 85025; 86850; 86900; 86901